=== PATIENT | male | born 1955 | race Caucasian/White ===

== ENCOUNTER 2019-06-23 08:39 | Day surgery (SDC) | payer OTHER ==
[2019-06-21 11:27] VITALS: BMI 25.9
[2019-06-23 08:56] VITALS: TEMP 98.2
[2019-06-23] MEDS ORDERED: PROPOFOL 20 ML ONE ×2 (09:27)
[2019-06-23 10:44] VITALS: BP 104/66; PULSE 56
--- NOTE | 2019-06-29 14:30 | PATH ---
Surgical Pathology Report Patient Name: RABIA CASTANEDA Med. Rec. #: [id number] /Age/Gender: 1955 (Age: 63) / M Account: [id number] Location: [facility] Taken: 06/23/2019 Received: 06/23/2019 Reported: 06/29/2019 Physicians: Gerald Pearl M.D. Specimen(s) Received A: BX DUODENUM B: BX ANTRUM C: BX ESOPHAGUS D: BX GE JUNCTION Clinical History GERD Postoperative diagnosis: Gastritis Final Diagnosis A. DUODENUM, BIOPSY: DUODENAL MUCOSA WITH NO PATHOLOGIC FINDINGS. B. ANTRUM, BIOPSY: MILD CHRONIC GASTRITIS. IMMUNOSTAIN IS NEGATIVE FOR H PYLORI ORGANISMS. C. ESOPHAGUS, BIOPSY: ESOPHAGEAL (SQUAMOUS) MUCOSA WITH NO PATHOLOGIC FINDINGS. NO COLUMNAR EPITHELIUM/INTESTINAL METAPLASIA IS IDENTIFIED. D. GE JUNCTION, BIOPSY: ESOPHAGEAL (SQUAMOUS) MUCOSA SHOWING MODERATE ACUTE ESOPHAGITIS IN A BACKGROUND OF REFLUX-ASSOCIATED CHANGES. NO COLUMNAR EPITHELIUM/INTESTINAL METAPLASIA IS IDENTIFIED. PAS STAIN IS NEGATIVE FOR FUNGAL ORGANISMS. Electronically Signed Fatoumata Garcia M.D. Gross Description A. Received in formalin, labeled "biopsy duodenum" are 2 bautista, irregular portions of soft tissue measuring 0.3 and 0.7 cm. in greatest dimension. The specimens are submitted in toto in one cassette. B. Received in formalin, labeled "biopsy antrum" are 2 bautista, irregular portions of soft tissue measuring 0.2 and 0.4 cm. in greatest dimension. The specimens are submitted in toto in one cassette. C. Received in formalin, labeled "biopsy esophagus" is a bautista, irregular portion of soft tissue measuring 0.2 cm. in greatest dimension. The specimen is submitted in toto in one cassette. D. Received in formalin, labeled "biopsy GE junction" is a bautista, irregular portion of soft tissue measuring 0.2 cm. in greatest dimension. The specimen is submitted in toto in one cassette. 06/24/201906/24/2019
== END 2019-06-23 10:41 | disposition home or self-care (01) ==
LOC: FASU-ENDO 08:39
PROVIDERS: ATTEND Internal Medicine Gastroenterology
PROC: 0DB68ZX Excision of Stomach, Via Natural or Artificial Opening Endoscopic, Diagnostic (ICD-10-PCS; 2019-06-23)
PROC: 0DB48ZX Excision of Esophagogastric Junction, Via Natural or Artificial Opening Endoscopic, Diagnostic (ICD-10-PCS; 2019-06-23)
PROC: 0DB98ZX Excision of Duodenum, Via Natural or Artificial Opening Endoscopic, Diagnostic (ICD-10-PCS; principal; 2019-06-23 09:59)
DX: K29.50 Unspecified chronic gastritis without bleeding (principal); K21.0 Gastro-esophageal reflux disease with esophagitis
CPT/HCPCS: 88305-TC; 88312-TC; 88342-TC

== ENCOUNTER 2020-06-01 07:34 | Day surgery (SDC) | payer OTHER, BC ==
[2020-05-31 12:38] VITALS: BMI 26.2
[2020-06-01] MEDS ORDERED: PROPOFOL 20 ML ONE ×2 (07:56)
[2020-06-01] MEDS ORDERED: LIDOCAINE HCL/PF 2% SDV 5ML VIAL ONE (07:56)
[2020-06-01 09:19] VITALS: BP 90/56; PULSE 52; TEMP 98
== END 2020-06-01 09:31 | disposition home or self-care (01) ==
LOC: FASU-ENDO 07:34
PROVIDERS: ATTEND Internal Medicine Gastroenterology
PROC: 0DBM8ZX Excision of Descending Colon, Via Natural or Artificial Opening Endoscopic, Diagnostic (ICD-10-PCS; principal; 2020-06-01 08:22)
DX: Z12.11 Encounter for screening for malignant neoplasm of colon (principal); Z80.0 Family history of malignant neoplasm of digestive organs; K57.30 Diverticulosis of large intestine without perforation or abscess without bleeding
CPT/HCPCS: 88305-TC

== ENCOUNTER 2020-07-02 12:17 | Emergency (ER) | payer OTHER, BC | END 2020-07-02 13:18 | disposition home or self-care (01) | LOC: JVIRT 12:17 | DX: Z03.818 Encounter for observation for suspected exposure to other biological agents ruled out (principal) | CPT/HCPCS: C9803; G2012-GT; U0003 ==

== ENCOUNTER 2020-07-19 10:29 | Emergency (ER) | payer OTHER, BC | END 2020-07-19 16:27 | disposition home or self-care (01) | LOC: JVIRT 10:29 | DX: Z20.822 Contact with and (suspected) exposure to COVID-19 (principal) | CPT/HCPCS: C9803; Q3014-GT; U0003 ==